=== PATIENT | female | born 1990 | race Hispanic/Latino ===

== ENCOUNTER 2018-02-14 10:20 | Emergency (ER) | payer OTHER, SELFPAY ==
[2018-02-14 11:15] LABS: Urine Blood NEGATIVE (NEG); Urine Glucose NEGATIVE (NEG); Urine Protein 1+ (NEG); Urine Specific Gravity >1.030 (1.005-1.030)
[2018-02-14] MEDS ORDERED: ONDANSETRON 4 MG/2 ML VIAL ONE (11:17)
[2018-02-14] MEDS ORDERED: NA CHLORIDE 0.9% 1,000 ML ONE (11:18)
[2018-02-14] MEDS ORDERED: FAMOTIDINE 20 MG/2 ML VIAL IV ONE (11:19)
[2018-02-14 11:47] LABS: Absolute Lymphocytes (CBC) 2.1 K/uL (0.7-4.9); Absolute Monocytes 0.4 K/uL (0.1-1.3); Absolute Neutrophil 4.2 K/uL (1.8-8.0); Basophils % 0.8 % (0-1.3); Eosinophils % 2.6 % (0-4.4); Hematocrit 35.9 % (36.0-45.0); Lymphocytes % 30.1 % (15.3-44.8); MCH 23.2 pg (27.0-35.0); MCV 74.5 fL (80-100); MPV 8.8 fL (7.6-11.3); Monocytes % 5.6 % (3.3-12.3); RBC Red Blood Cell Count 4.82 M/uL (3.86-4.86)
[2018-02-14 11:51] LABS: Urine Amorphous Sediment 1+ /HPF (NONE SEEN); Urine Bacteria >50 /HPF (<20); Urine Culture Reflex Order REFLEXED; Urine RBC NONE SEEN /HPF (NONE SEEN)
[2018-02-14 11:53] LABS: ALT/SGPT 16 U/L (12-78); AST/SGOT 11 U/L (15-37); Albumin 3.7 g/dL (3.4-5.0); Alkaline Phosphatase 37 U/L (45-117); BUN Blood Urea Nitrogen 7 mg/dL (7-18); Bicarbonate 27 mmol/L (21-32); Bilirubin Direct < 0.1 mg/dL (0-0.2); Bilirubin Total 0.4 mg/dL (0.2-1.0); Glucose Level 86 mg/dL (74-106); Lipase 107 U/L (73-393); Potassium 3.6 mmol/L (3.5-5.1); Protein, Total 7.8 g/dL (6.4-8.2); Sodium Level 135 mmol/L (136-145)
--- NOTE | 2018-02-14 13:33 | ER ---
Nurse's Notes [facility] Name: Katlyn Morton Age: 27 yrs Sex: Female : 1990 Arrival Date: 02/14/2018 Time: 10:21 Bed 18 Private MD: None, None Diagnosis: Vomiting;Cystitis Presentation: 02/14 10:36 Presenting complaint: Patient states: N/V for 3 days. Denies abdominal pain. Transition aj of care: patient was not received from another setting of care. Onset of symptoms was February 11, 2018. Risk Assessment: Do you want to hurt yourself or someone else? Patient reports no desire to harm self or others. Initial Sepsis Screen: Does the patient meet any 2 criteria? No. Patient's initial sepsis screen is negative. Does the patient have a suspected source of infection? No. Patient's initial sepsis screen is negative. Care prior to arrival: None. 10:36 Method Of Arrival: Ambulatory aj 10:36 Acuity: MERLYN 3 aj Triage Assessment: 10:37 General: Appears in no apparent distress. comfortable, Behavior is calm, cooperative, aj appropriate for age. Pain: Denies pain. Neuro: Level of Consciousness is awake, alert, obeys commands, Oriented to person, place, time, situation, Appropriate for age. Respiratory: Airway is patent Respiratory effort is even, unlabored, Respiratory pattern is regular, symmetrical. GI: Reports nausea, vomiting. Derm: Skin is intact, is healthy with good turgor, Skin is pink, warm \T\ dry. normal. 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 - Social history:: Smoking status: Patient/guardian denies using tobacco. - Ebola Screening: : Patient negative for fever greater than or equal to 101.5 degrees Fahrenheit, and additional compatible Ebola Virus Disease symptoms Patient denies exposure to infectious person Patient denies travel to an Ebola-affected area in the 21 days before illness onset No symptoms or risks identified at this time. Screenin:06 Abuse screen: Denies threats or abuse. Denies injuries from another. Nutritional aj1 screening: No deficits noted. Tuberculosis screening: No symptoms or risk factors identified. 14:09 Fall Risk None identified. aj1 Assessment: 11:06 General: Appears in no apparent distress. comfortable, Behavior is calm, cooperative, aj1 appropriate for age. Pain: Denies pain. Neuro: Level of Consciousness is awake, alert, obeys commands, Oriented to person, place, time, situation, Speech is normal, Facial symmetry appears normal. Cardiovascular: Patient's skin is warm and dry. Respiratory: Airway is patent Respiratory effort is even, unlabored, Respiratory pattern is regular, symmetrical. GI: Abdomen is flat, non-distended, Bowel sounds present X 4 quads. Abd is soft and non tender X 4 quads. Reports nausea, vomiting, Patient currently denies diarrhea. : No signs and/or symptoms were reported regarding the genitourinary system. EENT: No signs and/or symptoms were reported regarding the EENT system. Derm: No signs and/or symptoms reported regarding the dermatologic system. Skin is pink, warm \T\ dry. normal. Musculoskeletal: No signs and/or symptoms reported regarding the musculoskeletal system. Circulation, motion, and sensation intact. 12:00 Reassessment: Patient appears in no apparent distress at this time. No changes from aj1 previously documented assessment. Patient and/or family updated on plan of care and expected duration. Pain level reassessed. Patient is alert, oriented x 3, equal unlabored respirations, skin warm/dry/pink. 13:00 Reassessment: Patient appears in no apparent distress at this time. No changes from aj1 previously documented assessment. Patient and/or family updated on plan of care and expected duration. Pain level reassessed. Patient is alert, oriented x 3, equal unlabored respirations, skin warm/dry/pink. 14:08 Reassessment: Patient appears in no apparent distress at this time. No changes from aj1 previously documented assessment. Patient and/or family updated on plan of care and expected duration. Pain level reassessed. Patient is alert, oriented x 3, equal unlabored respirations, skin warm/dry/pink. Vital Signs: 10:37 BP 111 / 75; Pulse 75; Resp 16; Temp 98.1; Pulse Ox 98% on R/A; Weight 79.38 kg; Height aj 5 ft. 6 in. (167.64 cm); 11:54 BP 103 / 73; Pulse 62; Resp 16; Pulse Ox 100% on R/A; mh5 12:49 BP 99 / 67; Pulse 55; Resp 16; Pulse Ox 100% on R/A; mh5 14:08 BP 101 / 62; Pulse 67; Resp 18; Pulse Ox 99% ; aj1 10:37 Body Mass Index 28.25 (79.38 kg, 167.64 cm) ED Course: 10:21 Patient arrived in ED. sb2 10:22 None, None is Private Physician. sb2 10:37 Triage completed. aj 10:37 Arm band placed on right wrist. Patient placed in an exam room. aj 10:39 Charly Burris MD is Attending Physician. 11:05 Patience Singh, LOLLY is Primary Nurse. aj1 11:06 Patient has correct armband on for positive identification. Bed in low position. Call aj1 light in reach. Side rails up X 1. 11:06 No provider procedures requiring assistance completed. 1 11:13 Urine --Ancillary (enter results) Sent. 5 11:13 Urine Dipstick--Ancillary (enter results) Sent. 5 11:21 Initial lab(s) drawn, by oh, sent to lab. Urine collected: clean catch specimen, clear. 5 Inserted saline lock: 22 gauge in right antecubital area, using aseptic technique. Blood collected. 11:21 Basic Metabolic Panel Sent. 5 11:22 CBC with Diff Sent. 5 11:22 Hepatic Function Sent. [facility] 11:22 Lipase Sent. [facility] 11:22 Urine Microscopic Only Sent. [facility] 11:22 Inserted. 5 14:09 IV discontinued, intact, bleeding controlled, No redness/swelling at site. Pressure aj1 dressing applied. Administered Medications: 11:23 Drug: NS 0.9% 1000 ml Route: IV; Rate: 1 bolus; Site: right antecubital; aj1 14:07 Follow up: IV Status: Completed infusion; IV Intake: 1000ml 1 11:23 Drug: Zofran 4 mg Route: IVP; Site: right antecubital; aj1 14:07 Follow up: Response: No adverse reaction 1 11:23 Drug: Pepcid 20 mg Route: IVP; Site: right antecubital; aj1 14:07 Follow up: Response: No adverse reaction aj1 Intake: 14:07 IV: 1000ml; Total: 1000ml. aj1 Outcome: 13:32 Discharge ordered by . 14:09 Discharged to home ambulatory. aj1 14:09 Condition: good 14:09 Discharge instructions given to patient, Instructed on discharge instructions, follow up and referral plans. medication usage, Demonstrated understanding of instructions, follow-up care, medications, Prescriptions given X 1. 14:44 Patient left the ED. aj1 Signatures: Patience Singh RN RN aj1 Myers, Amanda, RN RN aj [facility]5 Charly Burris MD MD gs Billeau, Sheri sb2
--- NOTE | 2018-02-14 13:33 | EDPHYS ---
Physician Documentation [facility] Name: Katlyn Morton Age: 27 yrs Sex: Female : 1990 Arrival Date: 02/14/2018 Time: 10:21 Bed 18 Private MD: None, None ED Physician Charly Burris HPI: 02/14 13:30 This 27 yrs old Female presents to ER via Ambulatory with complaints of gs Vomiting. 13:30 The patient presents to the emergency department with vomiting, 3 times since the onset gs of symptoms. Onset: The symptoms/episode began/occurred 3 day(s) ago. Possible causes: unknown. The symptoms are aggravated by nothing. The symptoms are alleviated by nothing. Associated signs and symptoms: Pertinent negatives: diarrhea, dysuria, fever. Severity of symptoms: At their worst the symptoms were moderate in the emergency department the symptoms have improved markedly. The patient has experienced similar episodes in the past, a few times. The patient has not recently seen a physician. 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 - Social history:: Smoking status: Patient/guardian denies using tobacco. - Ebola Screening: : Patient negative for fever greater than or equal to 101.5 degrees Fahrenheit, and additional compatible Ebola Virus Disease symptoms Patient denies exposure to infectious person Patient denies travel to an Ebola-affected area in the 21 days before illness onset No symptoms or risks identified at this time. ROS: 13:30 All other systems are negative. gs Exam: 13:30 Head/Face: Normocephalic, atraumatic. Eyes: Pupils equal round and reactive to light, gs extra-ocular motions intact. Lids and lashes normal. Conjunctiva and sclera are non-icteric and not injected. Cornea within normal limits. Periorbital areas with no swelling, redness, or edema. ENT: Nares patent. No nasal discharge, no septal abnormalities noted. Tympanic membranes are normal and external auditory canals are clear. Oropharynx with no redness, swelling, or masses, exudates, or evidence of obstruction, uvula midline. Mucous membranes moist. Neck: Trachea midline, no thyromegaly or masses palpated, and no cervical lymphadenopathy. Supple, full range of motion without nuchal rigidity, or vertebral point tenderness. No Meningismus. Chest/axilla: Normal chest wall appearance and motion. Nontender with no deformity. No lesions are appreciated. Cardiovascular: Regular rate and rhythm with a normal S1 and S2. No gallops, murmurs, or rubs. Normal PMI, no JVD. No pulse deficits. Respiratory: Lungs have equal breath sounds bilaterally, clear to auscultation and percussion. No rales, rhonchi or wheezes noted. No increased work of breathing, no retractions or nasal flaring. Back: No spinal tenderness. No costovertebral tenderness. Full range of motion. Skin: Warm, dry with normal turgor. Normal color with no rashes, no lesions, and no evidence of cellulitis. MS/ Extremity: Pulses equal, no cyanosis. Neurovascular intact. Full, normal range of motion. Neuro: Awake and alert, GCS 15, oriented to person, place, time, and situation. Cranial nerves II-XII grossly intact. Motor strength 5/5 in all extremities. Sensory grossly intact. Cerebellar exam normal. Normal gait. 13:30 Constitutional: The patient appears alert, awake. 13:30 Abdomen/GI: Palpation: nontender, in all quadrants, rebound tenderness, is not appreciated, voluntary guarding, is not appreciated, involuntary guarding, is not appreciated. Vital Signs: 10:37 BP 111 / 75; Pulse 75; Resp 16; Temp 98.1; Pulse Ox 98% on R/A; Weight 79.38 kg; Height aj 5 ft. 6 in. (167.64 cm); 11:54 BP 103 / 73; Pulse 62; Resp 16; Pulse Ox 100% on R/A; mh5 12:49 BP 99 / 67; Pulse 55; Resp 16; Pulse Ox 100% on R/A; mh5 14:08 BP 101 / 62; Pulse 67; Resp 18; Pulse Ox 99% ; aj1 10:37 Body Mass Index 28.25 (79.38 kg, 167.64 cm) MDM: 10:57 Patient medically screened. 13:30 Differential diagnosis: pancreatitis, viral gastroenteritis, gastroenteritis. Data gs reviewed: vital signs, nurses notes. Response to treatment: the patient's symptoms have markedly improved after treatment, and as a result, I will discharge patient. 02/14 10:57 Order name: Basic Metabolic Panel; Complete Time: 13:29 02/14 10:57 Order name: CBC with Diff; Complete Time: 13:29 02/14 10:57 Order name: Hepatic Function; Complete Time: 13:29 02/14 10:57 Order name: Lipase; Complete Time: 13:29 02/14 10:57 Order name: Urine Microscopic Only; Complete Time: 13: 02/14 11:04 Order name: Urine Dipstick--Ancillary (enter results); Complete Time: 13: 02/14 10:57 Order name: Urine Test (obtain specimen); Complete Time: 11:23 02/14 10:57 Order name: IV Saline Lock; Complete Time: 11:14 02/14 10:57 Order name: Labs collected and sent; Complete Time: 11:22 02/14 11:04 Order name: Urine --Ancillary (enter results); Complete Time: 13: 02/14 11:52 Order name: Urine Culture [facility] 02/14 10:57 Order name: Urine Dipstick-Ancillary (obtain specimen); Complete Time: 11:14 gs Administered Medications: 11:23 Drug: NS 0.9% 1000 ml Route: IV; Rate: 1 bolus; Site: right antecubital; aj1 14:07 Follow up: IV Status: Completed infusion; IV Intake: 1000ml aj1 11:23 Drug: Zofran 4 mg Route: IVP; Site: right antecubital; aj1 14:07 Follow up: Response: No adverse reaction aj1 11:23 Drug: Pepcid 20 mg Route: IVP; Site: right antecubital; aj1 14:07 Follow up: Response: No adverse reaction aj1 Disposition: 02/14/18 13:32 Discharged to Home. Impression: Vomiting, Cystitis. - Condition is Stable. - Discharge Instructions: Nausea and Vomiting, Urinary Tract Infection. - Prescriptions for Keflex 500 mg Oral Capsule - take 1 capsule by ORAL route every 12 hours for 7 days; 14 capsule. Zofran 4 mg Oral Tablet - take 1 tablet by ORAL route every 12 hours As needed; 6 tablet. - Medication Reconciliation Form, Thank You Letter, Antibiotic Education, Prescription Opioid Use form. - Follow up: Private Physician; When: 2 - 3 days; Reason: Re-evaluation by your physician. Signatures: Dispatcher [employer] Patience Hurtado RN RN aj1 Linda Fall RN RN aj Charly Burris MD MD gs Corrections: (The following items were deleted from the chart) 14:44 13:32 02/14/2018 13:32 Discharged to Home. Impression: Vomiting; Cystitis. Condition is aj1 Stable. Forms are Medication Reconciliation Form, Thank You Letter, Antibiotic Education, Prescription Opioid Use. Follow up: Private Physician; When: 2 - 3 days; Reason: Re-evaluation by your physician. gs
== END 2018-02-14 14:44 | disposition home or self-care (01) ==
LOC: ER 10:20
DX: R11.10 Vomiting, unspecified (principal); N30.90 Cystitis, unspecified without hematuria
CPT/HCPCS: 36415; 80048; 80076; 81003; 81015; 81025; 83690; 85025; 87086; 87088; 96361; 96374; 96375; 99284; J2405; J7030

== ENCOUNTER 2018-08-23 21:26 | Emergency (ER) | payer BC, OTHER ==
--- OUTSIDE RECORDS SUMMARY | 2018-08-23 21:31 | XMS REPORT ---
:1990 [facility] Address [address] [place] [address] Care Team Providers Name Role Phone Unavailable Unavailable Unavailable Problems This patient has no known problems. Allergies, Adverse Reactions, Alerts This patient has no known allergies or adverse reactions. Medications This patient has no known medications.
[2018-08-23 22:27] LABS: Absolute Lymphocytes (CBC) 2.4 K/uL (0.7-4.9); Absolute Monocytes 0.5 K/uL (0.1-1.3); Absolute Neutrophil 4.3 K/uL (1.8-8.0); Eosinophils % 3.7 % (0-4.4); Hematocrit 33.8 % (36.0-45.0); Lymphocytes % 31.8 % (15.3-44.8); MPV 8.8 fL (7.6-11.3); Monocytes % 6.8 % (3.3-12.3); RBC Red Blood Cell Count 4.42 M/uL (3.86-4.86)
[2018-08-23 23:02] LABS: BUN Blood Urea Nitrogen 11 mg/dL (7-18); Bicarbonate 25 mmol/L (21-32); Glucose Level 89 mg/dL (74-106); HCG, Quantitative 56731 mIU/mL (1-3); Potassium 3.8 mmol/L (3.5-5.1); Sodium Level 137 mmol/L (136-145)
[2018-08-23 23:42] LABS: Urine Blood 2+ (NEG); Urine Glucose NEGATIVE (NEG); Urine Protein TRACE (NEG); Urine pH 7.5 (5.0-7.0)
--- NOTE | 2018-08-24 01:27 | EDPHYS ---
Physician Documentation [facility] Name: Katlyn Morton Age: 28 yrs Sex: Female : 1990 Arrival Date: 08/23/2018 Time: 21:30 Bed 25 Private MD: ED Physician Romulo Schwartz HPI: 08/23 22:05 This 28 yrs old Female presents to ER via Ambulatory with complaints of jmm Vaginal Bleeding, + Preg <12wks. 22:05 The patient presents to the emergency department with vaginal bleeding, that is light. jmm The estimated gestational age is 12 weeks. course: care: private OB physician. Associated signs and symptoms: Pertinent positives: vaginal bleeding. This is a 28 year old female with no chronic medical conditions that presents to the ED with vaginal bleeding beginning approx 1.5 hours ago. Patient states she is currently 12 weeks . Denies pelvic pain. . 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 - Social history:: Smoking status: Patient/guardian denies using tobacco. - Ebola Screening: : Patient denies travel to an Ebola-affected area in the 21 days before illness onset. ROS: 22:05 Constitutional: Negative for fever, chills, and weight loss, Cardiovascular: Negative jmm for chest pain, palpitations, and edema, Respiratory: Negative for shortness of breath, cough, wheezing, and pleuritic chest pain. 22:05 : Positive for vaginal bleeding. 22:05 All other systems are negative. Exam: 22:05 Constitutional: This is a well developed, well nourished patient who is awake, alert, jmm and in no acute distress. Head/Face: atraumatic. Eyes: EOMI, no conjunctival erythema appreciated ENT: Moist Mucus Membranes Neck: Trachea midline, Supple Chest/axilla: Normal chest wall appearance and motion. Cardiovascular: Regular rate and rhythm. No edema appreciated Respiratory: Normal respirations, no respiratory distress appreciated Abdomen/GI: Non distended, soft Back: Normal ROM Skin: General appearance color normal MS/ Extremity: Moves all extremities, no obvious deformities appreciated, no edema noted to the lower extremities Neuro: Awake and alert, normal gait Psych: Behavior is normal, Mood is normal, Patient is cooperative and pleasant Vital Signs: 21:57 BP 111 / 72; Pulse 63; Resp 18; Temp 98.2; Pulse Ox 99% on R/A; Height 5 ft. 6 in. 1 (167.64 cm) (R); Pain 0/10; 23:29 BP 99 / 77; Pulse 60; Resp 16; Pulse Ox 99% on R/A; aj1 08/24 00:37 BP 101 / 75; Pulse 71; Resp 16; Pulse Ox 98% on R/A; ak1 MDM: 08/23 22:05 Patient medically screened. [facility] 08/24 01:21 Data reviewed: vital signs, nurses notes. Counseling: I had a detailed discussion with [facility] the patient and/or guardian regarding: the historical points, exam findings, and any diagnostic results supporting the discharge/admit diagnosis, lab results, radiology results, the need for outpatient follow up, to return to the emergency department if symptoms worsen or persist or if there are any questions or concerns that arise at home. 01:21 Data reviewed: lab test result(s), radiologic studies, ultrasound. [facility] 01:21 ED course: Patient refused pelvic exam. Will see OB in the morning for reevaluation. [facility] 08/23 21:58 Order name: Quantitative Hcg; Complete Time: 23:41 [facility] 08/23 21:58 Order name: Abo/rh Typing; Complete Time: 23:41 [facility] 08/23 21:58 Order name: Basic Metabolic Panel; Complete Time: 23:41 [facility] 08/23 21:58 Order name: CBC with Diff; Complete Time: 22:37 [facility] 08/23 22:23 Order name: Urine Dipstick--Ancillary (enter results); Complete Time: 23:51 [facility] 08/23 22:23 Order name: Urine --Ancillary (enter results); Complete Time: 23:51 [facility] 08/23 21:58 Order name: Urine Test (obtain specimen); Complete Time: 22:33 [facility] 08/23 21:58 Order name: IV Saline Lock; Complete Time: 22:33 [facility] 08/23 21:58 Order name: Labs collected and sent; Complete Time: 22:33 [facility] 08/23 21:58 Order name: NPO; Complete Time: 22:08 [facility] 08/23 21:58 Order name: Urine Dipstick-Ancillary (obtain specimen); Complete Time: 22:33 [facility] 08/24 00:17 Order name: 1St Trimest Single [facility] Administered Medications: No medications were administered Point of Care Testing: Urine : 01:30 hCG Reading: Positive; ak1 Disposition: 01:38 Co-signature as Attending Physician, Romulo Schwartz MD. ever Disposition: 08/24/18 01:22 Discharged to Home. Impression: Threatened . - Condition is Stable. - Discharge Instructions: Threatened Miscarriage, Vaginal Bleeding During , First Trimester, Pelvic Rest. - Medication Reconciliation Form, Thank You Letter, Antibiotic Education, Prescription Opioid Use, Family Work Release form. - Follow up: Private Physician; When: Tomorrow; Reason: Recheck today's complaints, Continuance of care, Re-evaluation by your physician. Signatures: Dispatcher [employer] [facility] Patience Singh, RN RN aj1 Romulo Schwartz MD MD pkl Mickail, Joel, PA PA [facility] Malini Evans RN RN ak1 Corrections: (The following items were deleted from the chart) 00:17 08/23 21:59 Transvaginal Ob+US.RAD.BRZ ordered. [facility] 08/24 01:33 01:22 08/24/2018 01:22 Discharged to Home. Impression: Threatened . Condition ak1 is Stable. Forms are Medication Reconciliation Form, Thank You Letter, Antibiotic Education, Prescription Opioid Use. Follow up: Private Physician; When: Tomorrow; Reason: Recheck today's complaints, Continuance of care, Re-evaluation by your physician. [facility]
--- NOTE | 2018-08-24 01:27 | ER ---
Nurse's Notes [facility] Name: Katlyn Morton Age: 28 yrs Sex: Female : 1990 Arrival Date: 08/23/2018 Time: 21:30 Bed 25 Private MD: Diagnosis: Threatened Presentation: 08/23 21:55 Presenting complaint: Patient states: She is currently 12 weeks , after she had aj1 intercourse today she noticed when she wiped some light pink bleeding. The felt wet again a little while later and when she went into the bathroom to check the bleeding was darker. Patient denies pain or abdominal cramping. Transition of care: patient was not received from another setting of care. Onset of symptoms was August 23, 2018 at 20:30. Risk Assessment: Do you want to hurt yourself or someone else? Patient reports no desire to harm self or others. Initial Sepsis Screen: Does the patient meet any 2 criteria? No. Patient's initial sepsis screen is negative. Does the patient have a suspected source of infection? No. Patient's initial sepsis screen is negative. Care prior to arrival: None. 21:55 Method Of Arrival: Ambulatory aj1 21:55 Acuity: MERLYN 3 aj1 Triage Assessment: 21:57 General: Appears in no apparent distress. comfortable, Behavior is calm, cooperative, aj1 appropriate for age. Pain: Denies pain. : Reports vaginal bleeding that is bright red. CUFFER: 21:57 LMP 05/2018 aj1 22:05 6, Living 4 jm Historical: - Allergies: 21:57 No Known Allergies; aj1 - Home Meds: 21:57 Vitamin Oral [Active]; aj1 - PMHx: 21:57 None; aj1 - PSHx: 21:57 ; aj1 - Immunization history:: Flu vaccine is up to date. - Social history:: Smoking status: Patient/guardian denies using tobacco. - Ebola Screening: : Patient denies travel to an Ebola-affected area in the 21 days before illness onset. Screenin:59 Abuse screen: Denies threats or abuse. Denies injuries from another. Nutritional aj1 screening: No deficits noted. Tuberculosis screening: No symptoms or risk factors identified. 08/24 00:36 Fall Risk None identified. ak1 Assessment: 08/23 21:59 Obstetrical Assessment: Patient reports vaginal bleeding, denies abdominal cramping. aj1 General: Appears in no apparent distress. comfortable. Pain: Denies pain. Neuro: Level of Consciousness is awake, alert, obeys commands. Cardiovascular: Patient's skin is warm and dry. Respiratory: Airway is patent Respiratory effort is even, unlabored, Respiratory pattern is regular, symmetrical. GI: No signs and/or symptoms were reported involving the gastrointestinal system. : Reports vaginal bleeding that is. EENT: No signs and/or symptoms were reported regarding the EENT system. Derm: No signs and/or symptoms reported regarding the dermatologic system. Skin is pink, warm \T\ dry. normal. Musculoskeletal: No signs and/or symptoms reported regarding the musculoskeletal system. Circulation, motion, and sensation intact. 23:29 Reassessment: Patient appears in no apparent distress at this time. No changes from aj1 previously documented assessment. Patient and/or family updated on plan of care and expected duration. Pain level reassessed. Patient is alert, oriented x 3, equal unlabored respirations, skin warm/dry/pink. 08/24 00:36 Reassessment: Patient appears in no apparent distress at this time. No changes from ak1 previously documented assessment. Patient and/or family updated on plan of care and expected duration. Pain level reassessed. Patient is alert, oriented x 3, equal unlabored respirations, skin warm/dry/pink. 00:40 Reassessment: pt elected to see her CUFFER Wednesday for a pelvic exam, PA notified. ak1 Vital Signs: 08/23 21:57 BP 111 / 72; Pulse 63; Resp 18; Temp 98.2; Pulse Ox 99% on R/A; Height 5 ft. 6 in. aj1 (167.64 cm) (R); Pain 0/10; 23:29 BP 99 / 77; Pulse 60; Resp 16; Pulse Ox 99% on R/A; aj1 08/24 00:37 BP 101 / 75; Pulse 71; Resp 16; Pulse Ox 98% on R/A; ak1 Vitals: 01:30 Heart Tones 160bpm. ak1 ED Course: 08/23 21:30 Patient arrived in ED. am2 21:55 Patience Singh, RN is Primary Nurse. aj1 21:57 Triage completed. aj1 21:57 Dre Barnett PA is PHCP. [facility] 21:57 Romulo Schwartz MD is Attending Physician. [facility] 21:57 Arm band placed on Patient placed in an exam room. aj1 21:59 Patient has correct armband on for positive identification. aj1 21:59 No provider procedures requiring assistance completed. aj1 22:19 Inserted saline lock: 22 gauge in right antecubital area, using aseptic technique. Blood collected. 22:19 Initial lab(s) drawn, by me, sent to lab. 08/24 00:13 Ultrasound completed. Patient tolerated well. aa4 00:17 1St Trimest Single 1St Fetus In Process Unspecified. EDMS 01:32 IV discontinued, intact, bleeding controlled, No redness/swelling at site. Pressure ak1 dressing applied. Administered Medications: No medications were administered Point of Care Testing: Urine : 01:30 hCG Reading: Positive; ak1 Outcome: 01:22 Discharge ordered by . [facility] 01:30 Discharged to home ambulatory, with family. ak1 01:30 Condition: good 01:30 Discharge instructions given to patient, family, Instructed on discharge instructions, follow up and referral plans. Demonstrated understanding of instructions, follow-up care. 01:33 Patient left the ED. ak1 Signatures: Dispatcher [employer] EDMS Patience Singh, RN RN ajDre Martin PA PA jmm Frazier, Amanda 4 Malini Evans RN RN ak1 Linda Dutta am2 Monique Alfred
--- NOTE | 2018-08-24 08:15 | RAD REPORT ---
EXAM DESCRIPTION: US - 1St Trimest Single 1St Fetus - 08/24/2018 12:15 am CLINICAL HISTORY: , vaginal bleeding Preliminary findings provided at the time of the study. COMPARISON: None. FINDINGS: A single intrauterine gestation is identified. Heart rate is 160 bpm. No hematoma, mass or other suspicious finding. [place]-rump length measurement corresponds to a 11 W 2 D age. WILIAN is 2018. No suspicion for placental abnormality. Gestational sac has normal configuration. Cervical odette l appears closed. Both ovaries are identified and normal. No adnexal abnormality or free fluid in the cul de sac. IMPRESSION: Single 11 W 2 D intrauterine gestation. WILIAN is 03[birth year]13/2021. Gestational sac is normal in shape. No intrauterine hematoma, mass or other abnormality.
== END 2018-08-24 01:33 | disposition home or self-care (01) ==
LOC: ER 21:26
DX: O20.0 Threatened abortion (principal); Z3A.12 12 weeks gestation of pregnancy
CPT/HCPCS: 36415; 76801; 80048; 81003; 81025; 84702; 85025; 86900; 86901; 99284